=== PATIENT | female | born 1950 | race Caucasian/White ===

== ENCOUNTER 2021-02-21 12:06 | Emergency (ER) | payer MEDICARE ==
[~2021-02-21] VITALS: Ht 170.2 cm; Wt 51.7 kg
[2021-02-21] MEDS ORDERED: METHYLPREDNISOLONE SOD SUCC 125 MG/2ML VIAL IV ONE (12:30)
[2021-02-21] MEDS ORDERED: ALBUTEROL/IPRATROPIUM 3 ML NEB NEB SCH (12:45)
[2021-02-21 13:40] LABS: HEMATOCRIT 35.1 % (34.2-44.1); HEMOGLOBIN 10.8 g/dL (12.0-16.0); LYMPHOCYTES # (AUTO) 0.5 (1.0-3.2); LYMPHOCYTES % 13.2 % (18.0-39.1); MEAN CORPUSCULAR HEMOGLOBIN 29.3 pg (28-32); MEAN CORPUSCULAR HGB CONC 30.8 g/dL (31-35); MEAN CORPUSCULAR VOLUME 95.1 fL (81-99); MONOCYTES # (AUTO) 0.1 (0.2-0.8); MONOCYTES % 2.1 % (4.4-11.3); NEUTROPHILS # (AUTO) 2.9 (2.1-6.9); NEUTROPHILS % 84.1 % (38.7-80.0); PLATELET COUNT 300 x10e3/uL (140-360); RED BLOOD COUNT 3.69 x10e6/uL (3.6-5.1); RED CELL DISTRIBUTION WIDTH 14.6 % (11.7-14.4)
[2021-02-21 14:16] LABS: ALBUMIN 3.8 g/dL (3.5-5.0); ALBUMIN/GLOBULIN RATIO 1.4 (0.8-2.0); ANION GAP 12.8 mmol/L (8-16); CREATININE, SERUM 0.77 mg/dL (0.57-1.11); POTASSIUM 3.8 mmol/L (3.5-5.1)
[2021-02-21 14:48] VITALS: BP 116/87
[2021-02-21] MEDS ORDERED: ALBUTEROL1.25 MG/3 NEB (14:52)
[2021-02-21] MEDS ORDERED: PREDNISONE50 MG PO (14:52)
[2021-02-21] MEDS ORDERED: TESSALON PERLE100 MG PO (14:52)
[2021-02-21] MEDS ORDERED: AZITHROMYCIN250 MG PO (14:54)
== END 2021-02-21 15:00 | disposition home or self-care (01) ==
LOC: ER 12:21
DX: J44.1 Chronic obstructive pulmonary disease with (acute) exacerbation (principal); I48.91 Unspecified atrial fibrillation; Z99.81 Dependence on supplemental oxygen; Z88.8 Allergy status to other drugs, medicaments and biological substances; Z20.822 Contact with and (suspected) exposure to COVID-19
CPT/HCPCS: 36415; 71045; 80053; 85025; 93005; 94640; 94799; 99284; J2930; U0002